=== PATIENT | female | born 1975 | race Caucasian/White ===

== ENCOUNTER 2019-03-02 17:21 | Emergency (ER) | payer SELFPAY ==
[~2019-03-02] VITALS: Ht 175.3 cm; Wt 120.2 kg
--- NOTE | 2019-03-02 17:23 | ED Lower Extremity ---
General Chief Complaint: L knee pain Stated Complaint: LEFT KNEE PAIN Source: patient Exam Limitations: no limitations History of Present Illness Date Seen by Provider: Mar 02, 2019 Time Seen by Provider: 17:32 43 y/o F was walking down steps Wednesday morning while L knee was bent planting it to the step she became off balance, nearly falling over heard and felt a pop. Since then has had L knee swelling, L knee feels like it catches, pain worse with walking. Rest improves. Has tried heat, tylenol without relief. Allergic to Toradol and Ibuprofen. Allergies and Home Medications Allergies Coded Allergies: ibuprofen (Verified Allergy, Unknown, TROUBLE BREATHING, 03/02/19) ketorolac (Verified Allergy, Unknown, TROUBLE BREATHING, 03/02/19) tramadol (Verified Allergy, Unknown, HIVES, 03/02/19) Home Medications Hydrocodone/Acetaminophen 1 Each Tablet, 1 TAB PO Q6H PRN for PAIN-MODERATE TO SEVERE Prescribed by: RONEL MOSS on 03/02/19 4120 Patient Home Medication List Home Medication List Reviewed: Yes Review of Systems Constitutional: No chills, No fever Respiratory: No cough, No short of breath Musculoskeletal: see HPI; No back pain; joint pain Psychiatric/Neurological: Denies Numbness, Denies Tingling, Denies Weakness Past Exgpoin-Cubbks-Iqdnre Hx Past Med/Social Hx: Reviewed Nursing Past Med/Soc Hx Physical Exam Vital Signs Vital Signs - First Documented 03/02/19 17:30 Temp 98.0 Pulse 99 Resp 16 B/P (MAP) 149/87 (107) Pulse Ox 97 O2 Delivery Room Air Capillary Refill : Height, Weight, BMI Height: '" Weight: lbs. oz. kg; BMI Method: General Appearance: WD/WN, no apparent distress HEENT: PERRL/EOMI, normal ENT inspection Cardiovascular: regular rate, rhythm, no edema, no gallop, no JVD, no murmur Respiratory: chest non-tender, lungs clear, normal breath sounds, no respiratory distress, no accessory muscle use Hips: bilateral hip non-tender, bilateral hip normal inspection, bilateral hip normal range of motion, bilateral hip no evidence of injury Legs: bilateral leg non-tender, bilateral leg normal inspection, bilateral leg normal range of motion, bilateral leg no evidence of injury Knees: right knee non-tender, right knee normal inspection, right knee normal range of motion, right knee no evidence of injury; left knee bone tenderness ( lateral aspect of tib plateau), left knee joint effusion (minimal L), left knee pain, left knee swelling (decreased ROM L knee), left knee other (+ Anuradha's and Apley's test) Neurologic/Psychiatric: alert, normal mood/affect, oriented x 3 Skin: normal color, warm/dry Progress/Results/Core Measures Results/Orders My Orders Orders - RONEL MOSS MD Knee 3 View Left (03/02/19 17:38) Dexamethasone Tablet (Decadron Tablet) (03/02/19 17:40) Hydrocodone/[place] 5/325 Tablet (Lortab 5 (03/02/19 17:45) Vital Signs/I&O 03/02/19 17:30 Temp 98.0 Pulse 99 Resp 16 B/P (MAP) 149/87 (107) Pulse Ox 97 O2 Delivery Room Air Progress Progress Note : Progress Note Discussed RICE. Discussed negative XR, likely meniscus injury +/- ACL/PCL though with mild joint effusion she has normal joint laxity/ Trevon's and posterior drawer testing. Diagnostic Imaging Diagonstic Imaging: Xray Plain Films/CT/US/NM/MRI: knee Comments mild joint effusion, no fx or dislocation Reviewed: Reviewed by Me Departure Impression Primary Impression: Meniscus, lateral, derangement Additional Impression: Internal derangement of knee Disposition: 01 HOME, SELF-CARE Condition: Stable Departure-Patient Inst. Patient Instructions: Internal Derangement of the Knee, Meniscal Tear (DC) Add. Discharge Instructions: All discharge instructions reviewed with patient and/or family. Voiced understanding. Scripts Hydrocodone/Acetaminophen ([place] 5-325 Tablet) 1 Each Tablet 1 TAB PO Q6H PRN for PAIN-MODERATE TO SEVERE MDD 10 TABS for 7 Days, #11 TAB 0 Refills Prov: RONEL MOSS MD 03/02/19 RONEL MOSS MD Mar 02, 2019 17:23
[2019-03-02] MEDS ORDERED: DEXAMETHASONE 4 MG TAB (DECADRON) PO STA (17:40)
[2019-03-02] MEDS ORDERED: HYDROcodone/APAP 5 MG/325 MG (LORTAB) TAB PO ONE (17:45)
[2019-03-02] MEDS ORDERED: HYDR-4226 PO (17:52)
--- NOTE | 2019-03-02 17:59 | Diagnostic Imaging Report ---
EXAMINATION: Left knee, three views. INDICATION: Left knee pain after fall down stairs. COMPARISON: Left knee radiographs performed on 01/16/2015. FINDINGS: No fracture or acute osseous abnormality. Bony alignment is maintained. No significant arthritic change. Soft tissues are unremarkable. No significant joint effusion. IMPRESSION: No acute fracture or dislocation. Dictated by: Dictated on workstation # [id number]
[2019-03-02] MEDS ORDERED: DEXAMETHASONE 4 MG/ML SDV (DECADRON) ONE (18:02)
[2019-03-02 18:15] VITALS: BP 149/87
== END 2019-03-02 18:15 | disposition home or self-care (01) ==
LOC: ER FS 17:25
DX: M23.92 Unspecified internal derangement of left knee (principal); Z88.6 Allergy status to analgesic agent; Z88.4 Allergy status to anesthetic agent; X50.1XXA Overexertion from prolonged static or awkward postures, initial encounter
CPT/HCPCS: 73562